=== PATIENT | male | born 2000 | race Caucasian/White ===

== ENCOUNTER 2022-08-11 11:36 | Inpatient (IN) ==
[2022-08-11 12:19] LABS: Basophils # 0.1 K/mcL (0.0-0.2); Basophils % 0.6 %; Eosinophils # 0.1 K/mcL (0.0-0.6); Eosinophils % 0.8 %; Hematocrit 44.9 % (37.5-50.1); Hemoglobin 15.4 g/dL (12.9-16.9); Immature Granulocytes % 0.3 % (0-4); Lymphocytes # 2.4 K/mcL (0.6-4.6); Lymphocytes % 20.5 %; Mean Corpuscular HGB Conc 34.3 g/dL (31.6-35.5); Mean Corpuscular Hemoglobin 29.9 pg (28.0-33.3); Mean Corpuscular Volume 87.2 fL (83.0-100.0); Mean Platelet Volume 7.9 fL (9.4-12.4); Monocytes # 0.9 K/mcL (0.0-1.3); Monocytes % 7.8 %; Neutrophils # 8.1 K/mcL (1.6-8.9); Platelet Count 249 K/mcL (140-400); Red Blood Count 5.15 M/mcL (4.19-5.50); Red Cell Distribution Width 12.3 % (11.5-14.5); White Blood Count 11.5 K/mcL (4.3-11.1)
[2022-08-11 12:24] LABS: Acetaminophen < 10 mcg/mL (10-20); BUN/Creatinine Ratio 16 (6-26); Blood Urea Nitrogen 15 mg/dL (6-20); Calcium 9.2 mg/dL (8.6-10.3); Carbon Dioxide 23 mEq/L (23-29); Chloride 107 mEq/L (98-107); Cholesterol 175 mg/dL (< 200); Ethanol < 10 mg/dL (Less than 10); Glucose 101 mg/dL (70-105); HDL Cholesterol 35 mg/dL (40-59); LDL Cholesterol,Calculated 122 mg/dL (< 100); Osmolality,Calculated 287 (280-300); Potassium 3.9 mEq/L (3.5-5.1); Salicylate < 2.5 mg/dL (15.0-30.0); Sodium 138 mEq/L (136-145); Triglycerides 90 mg/dL (< 150)
[2022-08-11 13:19] LABS: Estimated Average Glucose 100 mg/dl; Hemoglobin A1C 5.1 %
[2022-08-11 13:31] LABS: Bilirubin,Urine Negative (Negative); Blood,Urine Negative (Negative); Clarity,Urine Clear (Clear); Color,Urine Colorless (Yellow); Glucose,Urine (UA) Normal (Normal); Ketones,Urine Negative (Negative); Leukocyte Esterase,Urine Negative (Negative); Nitrite,Urine Negative (Negative); PH,Urine 6.5 pH Units (5.0-8.0); Protein,Urine Negative (Neg-Trace); Specific Gravity,Urine 1.015 (1.010-1.025); Urobilinogen,Urine Normal (Normal)
[2022-08-11 13:33] LABS: Amphetamine Screen,Urine Negative ng/mL (Cutoff=1000); Barbiturate Screen,Urine Negative ng/mL (Cutoff=200); Benzodiazepines Screen,Urine Negative ng/mL (Cutoff=200); Cannabinoid Screen,Urine Positive ng/mL (Cutoff = 50); Cocaine Screen,Urine Negative ng/mL (Cutoff= 300); Opiate Screen,Urine Negative ng/mL (Cutoff=300); Phencyclidine Screen,Urine Negative ng/mL (Cutoff=25)
[2022-08-11] MEDS ORDERED: *HR* LORazepam 1 MG TABLET PO ONE (14:35)
[2022-08-11 18:38] LABS: Influenza A PCR Negative (Negative); Influenza B PCR Negative (Negative); Resp. Syncytial Virus PCR Negative (Negative)
[2022-08-11 18:44] LABS: SARS-CoV-2 by PCR (In House) Negative (Negative)
[2022-08-11] MEDS: Nicotine 21 MG PATCH.TD24 TD SCH (18:56)
[2022-08-11] MEDS ORDERED: Haloperidol Lactate 5 MG/ML VIAL IM PRN (19:00)
[2022-08-11] MEDS ORDERED: Acetaminophen 325 MG TABLET PO PRN (19:00)
[2022-08-11] MEDS ORDERED: *HR* LORazepam 1 MG TABLET PO PRN (19:00)
[2022-08-11] MEDS ORDERED: *HR* LORazepam 2 MG/ML VIAL IM PRN (19:00)
[2022-08-11] MEDS ORDERED: haloperidoL 5 MG TABLET PO PRN (19:00)
[2022-08-11] MEDS ORDERED: Mag Hydrox/Al Hydrox/Simeth 30 ML UDC PO PRN (20:23)
[2022-08-11] MEDS ORDERED: MOM Conc 10 ML UD.LIQ PO PRN (20:23)
[2022-08-11] MEDS: traZODone 50 MG TABLET PO PRN (22:16)
[2022-08-11] MEDS: hydrOXYzine pamoate 25 MG CAPSULE PO PRN (22:16)
[2022-08-12] MEDS: Nicotine 21 MG PATCH.TD24 TD SCH ×2 (09:23→09:30)
[2022-08-12] MEDS: hydrOXYzine pamoate 25 MG CAPSULE PO PRN (17:22)
[2022-08-12] MEDS: traZODone 50 MG TABLET PO PRN (20:27)
[2022-08-13] MEDS: Nicotine 21 MG PATCH.TD24 TD SCH (08:15)
[2022-08-13] MEDS: hydrOXYzine pamoate 25 MG CAPSULE PO PRN (08:46)
[2022-08-13 09:24] VITALS: BP 161/110; PULSE 89; TEMP 98.1; O2SAT 98
== END 2022-08-13 16:40 | disposition home or self-care (01) | DRG 751 ==
LOC: EMEROOARM 11:36 → 1ANU 19:36
PROVIDERS: ADMIT Psychiatry & Neurology Psychiatry; ATTEND Psychiatry & Neurology Psychiatry